=== PATIENT | male | born 1980 | race Caucasian/White ===

== ENCOUNTER 2021-03-30 03:13 | Emergency (ER) | payer OTHER ==
[~2021-03-30] VITALS: Ht 182.9 cm; Wt 72.6 kg
[2021-03-30 03:59] VITALS: BP 135/76
[2021-03-30] MEDS ORDERED: AMOX-430 PO (04:07)
[2021-03-30] MEDS ORDERED: AMOX/CLAVULANATE 875 MG TABLET ONE (04:13)
[2021-03-30] MEDS ORDERED: TDAP [DIPH/PERTUSSIS/TET] 0.5 ML VIAL IM ONE ×2 (04:14→04:30)
[2021-03-30] MEDS ORDERED: AMOX/CLAVULANATE 875 MG TABLET PO ONE (04:30)
== END 2021-03-30 04:22 | disposition home or self-care (01) ==
LOC: ER 03:17
DX: S61.210A Laceration without foreign body of right index finger without damage to nail, initial encounter (principal); J45.909 Unspecified asthma, uncomplicated; Z79.899 Other long term (current) drug therapy; W50.3XXA Accidental bite by another person, initial encounter; Y93.89 Activity, other specified; Y92.89 Other specified places as the place of occurrence of the external cause; Y99.8 Other external cause status
CPT/HCPCS: 90471; 90715; 99283; A6403